=== PATIENT | female | born 1985 | race Two or more races ===

== ENCOUNTER 2017-03-06 04:23 | Emergency (ER) | payer BC, MEDICAID ==
[~2017-03-06] VITALS: Ht 167.6 cm; Wt 77.1 kg
[~2017-03-06 04:23] MED LIST: LORA2TAB95 PO; VALIUM
[2017-03-06] MEDS ORDERED: LORAZEPAM 0.5 MG TABLET PO ONE (05:00)
[2017-03-06] MEDS ORDERED: LORAZEPAM 1 MG TABLET ONE (05:06)
--- NOTE | 2017-03-06 05:06 | NUR ---
Patient discharged to home in stable conditon WITH FRIEND TAKING PATIENT HOME. Written and verbal after care instructions given. Patient verbalizes understanding of instructions.
[2017-03-06 05:07] VITALS: BP 126/65
== END 2017-03-06 05:07 | disposition home or self-care (01) ==
LOC: ER 04:24
DX: F41.9 Anxiety disorder, unspecified (principal); F10.20 Alcohol dependence, uncomplicated; F12.10 Cannabis abuse, uncomplicated
CPT/HCPCS: A4663

== ENCOUNTER 2017-04-21 19:05 | Emergency (ER) | payer SELFPAY ==
[~2017-04-21] VITALS: Ht 167.6 cm; Wt 78.9 kg
[2017-04-21] MEDS ORDERED: ONDANSETRON IV *ER 4 MG/2 ML VIAL IV ONE (20:00)
[2017-04-21] MEDS ORDERED: IV NORMAL SALINE 1000 ML BAG IV ONE (20:00)
[2017-04-21] MEDS ORDERED: ONDANSETRON 4 MG/2 ML VIAL ONE (20:12)
--- NOTE | 2017-04-21 20:20 | NUR ---
Patient refsuing to have any blood work done,EKG ot any other test to be proformed. Patient states "I don't have insurance. I am going home now."Dr Dietrich aware
--- NOTE | 2017-04-21 20:29 | NUR ---
Patient does not wish to proceed with medical care recommended by ( [facility] ). Patient given information related to possible complications, up to and including , which could occur as a result of leaving the hospital at this time. Patient verbalizes understanding of risks involved due to leaving against medical advice. Patient has signed AMA form.
== END 2017-04-21 20:30 | disposition left against medical advice (07) ==
LOC: ER 19:06
DX: R42 Dizziness and giddiness (principal); F17.200 Nicotine dependence, unspecified, uncomplicated; F41.9 Anxiety disorder, unspecified
CPT/HCPCS: 93005; A4663; J2405; J7030

== ENCOUNTER 2017-08-02 17:38 | Emergency (ER) | payer BC, MEDICAID ==
[~2017-08-02] VITALS: Ht 170.2 cm; Wt 77.1 kg
[2017-08-02 18:09] LABS: *BILIRUBIN,URIN NEGATIVE (NEGATIVE); *BLOOD, URINE NEGATIVE (NEGATIVE); *CLARITY,URINE CLEAR (CLEAR); *COLOR,URINE LIGHT YELLOW (YELLOW); *KETONES,URINE NEGATIVE (NEGATIVE); *PROTEIN,URINE NEGATIVE (NEGATIVE); *URINE HCG, QUAL NEGATIVE (NEGATIVE); *UROBILINOGEN,URINE 0.2 E.U./dl (NORMAL); LEUKOCYTE ESTERASE ,URINE TRACE (NEGATIVE); NITRITE, URINE NEGATIVE (NEGATIVE); UGLUCOSE NEGATIVE (NEGATIVE)
[2017-08-02 18:17] LABS: SQUAMOUS EPITHELIAL CELL,UR FEW /HPF (NONE SEEN)
--- NOTE | 2017-08-02 18:17 | NUR ---
Pt c/o upper back pain, started last night, 02/18. Pt states that yesterday she was doing physical activity, like moving things around. Pt denies CP, SOB, dizziness, n/v, no other complaints, no distress noted, but pt is moderately anxious.
[2017-08-02] MEDS ORDERED: KETOROLAC TROMETHAMINE 60 MG INJ IM ONE ×2 (19:45→19:57)
--- NOTE | 2017-08-02 19:50 | NUR ---
Gave pt RX and d/c instructions, verbalized understanding.
== END 2017-08-02 19:53 | disposition home or self-care (01) ==
LOC: ER 17:39
DX: M54.6 Pain in thoracic spine (principal); F41.9 Anxiety disorder, unspecified; F17.200 Nicotine dependence, unspecified, uncomplicated
CPT/HCPCS: 71010; 81001; 84703; 93005; 96372; 99285; 99406; A4663; J1885

== ENCOUNTER 2017-08-05 13:36 | Emergency (ER) | payer BC, MEDICAID ==
[~2017-08-05] VITALS: Ht 170.2 cm; Wt 77.1 kg
[2017-08-05] MEDS ORDERED: CEPH-570 PO (13:57)
[2017-08-05] MEDS ORDERED: LORA1TAB PO (13:57)
[2017-08-05] MEDS ORDERED: CLONIDINE HCL 0.2 MG TABLET PO ONE (14:30)
[2017-08-05] MEDS ORDERED: CLONIDINE HCL 0.2 MG TABLET ONE (14:57)
--- NOTE | 2017-08-05 15:31 | NUR ---
PT WAS EVALUATED BY DR TORRE. PT WAS D/C TO HOME . D/C INSTRUCTIONS GIVEN TO THE PT.
[2017-08-05 15:34] VITALS: BP 136/86
== END 2017-08-05 15:35 | disposition home or self-care (01) ==
LOC: ER 13:38
DX: R51 Headache (principal); R11.0 Nausea; F17.200 Nicotine dependence, unspecified, uncomplicated; F12.10 Cannabis abuse, uncomplicated
CPT/HCPCS: 99283; A4663

== ENCOUNTER 2017-08-05 21:54 | Emergency (ER) | payer BC, MEDICAID ==
[~2017-08-05] VITALS: Ht 170.2 cm; Wt 77.1 kg
[~2017-08-05 21:54] MED LIST changes: +CEPH-570 PO; +LORA1TAB PO; -LORA2TAB95 PO; -VALIUM
[2017-08-05 23:36] LABS: BASOPHILS # (AUTO) 0.1 K/uL (0.0-8.0); BASOPHILS % (AUTO) 0.8 % (0.0-2.0); EOSINOPHILS # (AUTO) 0.2 K/uL (0.0-0.7); EOSINOPHILS % (AUTO) 2.9 % (0.0-7.0); HEMATOCRIT 40.8 % (31.2-41.9); HEMOGLOBIN 13.7 g/dL (10.9-14.3); LYMPHOCYTES % (AUTO) 23.4 % (20.5-51.5); MEAN CORPUSCULAR HGB CONC 34 g/dL (32.3-35.6); MEAN CORPUSCULAR VOLUME 89.4 fL (75.5-95.3); MONOCYTES # (AUTO) 0.4 K/uL (2.0-10.0); MONOCYTES % (AUTO) 4.9 % (0.0-11.0); NEUTROPHILS # (AUTO) 5.9 K/uL (1.8-8.9); PLATELET COUNT (AUTO) 325 K/uL (179-408); RED BLOOD CELL COUNT(AUTO) 4.56 MIL/uL (3.63-4.92); WHITE BLOOD COUNT (AUTO) 8.6 K/uL (3.8-11.8)
[2017-08-05 23:52] LABS: CREATININE 0.8 mg/dL (0.6-1.3); POTASSIUM 4.2 mmol/L (3.5-5.1)
[2017-08-05 23:57] LABS: BILIRUBIN,DIRECT 0.1 mg/dL (0.0-0.2); BILIRUBIN,TOTAL 0.5 mg/dL (0.2-1.0); TOTAL PROTEIN, SERUM 8.2 g/dL (6.4-8.2)
--- NOTE | 2017-08-06 00:18 | NUR ---
Patient discharged to home in stable conditon. Written and verbal after care instructions given. Patient verbalizes understanding of instructions.
== END 2017-08-06 00:22 | disposition home or self-care (01) ==
LOC: ER 21:58
DX: F41.9 Anxiety disorder, unspecified (principal); R51 Headache; F12.10 Cannabis abuse, uncomplicated
CPT/HCPCS: 36415; 70450; 84703; 85025; A4663

== ENCOUNTER 2017-10-18 23:03 | Emergency (ER) | payer BC, MEDICAID ==
[~2017-10-18] VITALS: Ht 167.6 cm; Wt 79.4 kg
[2017-10-19] MEDS ORDERED: ONDANSETRON ODT 4 MG TAB.RAPDIS SL ONE (01:00)
[2017-10-19 01:14] LABS: BASOPHILS # (AUTO) 0.1 K/uL (0.0-8.0); BASOPHILS % (AUTO) 0.6 % (0.0-2.0); EOSINOPHILS # (AUTO) 0.2 K/uL (0.0-0.7); EOSINOPHILS % (AUTO) 2.1 % (0.0-7.0); HEMATOCRIT 42.2 % (31.2-41.9); HEMOGLOBIN 14.1 g/dL (10.9-14.3); LYMPHOCYTES % (AUTO) 22.8 % (20.5-51.5); MEAN CORPUSCULAR HEMOGLOBIN 29.5 uug (24.7-32.8); MEAN CORPUSCULAR HGB CONC 34 g/dL (32.3-35.6); MONOCYTES # (AUTO) 0.4 K/uL (2.0-10.0); MONOCYTES % (AUTO) 4.4 % (0.0-11.0); NEUTROPHILS # (AUTO) 6.2 K/uL (1.8-8.9); NEUTROPHILS % (AUTO) 70.1 % (38.5-71.5); PLATELET COUNT (AUTO) 362 K/uL (179-408); WHITE BLOOD COUNT (AUTO) 8.9 K/uL (3.8-11.8)
[2017-10-19] MEDS ORDERED: ONDANSETRON ODT 4 MG TAB.RAPDIS ONE (01:19)
[2017-10-19 01:28] LABS: POTASSIUM 3.6 mmol/L (3.5-5.1)
[2017-10-19 01:34] LABS: BILIRUBIN,DIRECT 0.1 mg/dL (0.0-0.2); BILIRUBIN,TOTAL 0.2 mg/dL (0.2-1.0); TOTAL PROTEIN, SERUM 8.4 g/dL (6.4-8.2)
--- NOTE | 2017-10-19 01:50 | NUR ---
Patient discharged to home in stable conditon. Written and verbal after care instructions given. Patient verbalizes understanding of instructions.
== END 2017-10-19 01:54 | disposition home or self-care (01) ==
LOC: ER 23:04
DX: R11.2 Nausea with vomiting, unspecified (principal); R53.1 Weakness; F17.200 Nicotine dependence, unspecified, uncomplicated
CPT/HCPCS: 36415; 83690; 84703; 85025; A4663; Q0162

== ENCOUNTER 2017-10-23 19:25 | Emergency (ER) | payer MEDICAID ==
[~2017-10-23] VITALS: Ht 167.6 cm; Wt 77.1 kg
[2017-10-23 20:09] LABS: *BILIRUBIN,URIN NEGATIVE (NEGATIVE); *BLOOD, URINE Trace-intact (NEGATIVE); *CLARITY,URINE CLEAR (CLEAR); *COLOR,URINE YELLOW (YELLOW); *KETONES,URINE NEGATIVE (NEGATIVE); *PROTEIN,URINE NEGATIVE (NEGATIVE); *UROBILINOGEN,URINE 0.2 E.U./dl (NORMAL); LEUKOCYTE ESTERASE ,URINE TRACE (NEGATIVE); NITRITE, URINE NEGATIVE (NEGATIVE); PH,URINE 6.5 (5.0-8.0); UGLUCOSE NEGATIVE (NEGATIVE)
[2017-10-23 20:10] LABS: BACTERIA,URINE NONE SEEN /HPF (NONE SEEN); RBC,URINE 0-3 /HPF (0-3); SQUAMOUS EPITHELIAL CELL,UR MODERATE /HPF (NONE SEEN)
[2017-10-23 20:20] LABS: *URINE HCG, QUAL NEGATIVE (NEGATIVE)
--- NOTE | 2017-10-23 20:52 | NUR ---
Patient discharged to home in stable conditon. Written and verbal after care instructions given. Patient verbalizes understanding of instructions.
== END 2017-10-23 20:53 | disposition home or self-care (01) ==
LOC: ER 19:26
DX: R19.8 Other specified symptoms and signs involving the digestive system and abdomen (principal); T37.5X5A Adverse effect of antiviral drugs, initial encounter; F17.200 Nicotine dependence, unspecified, uncomplicated; K21.9 Gastro-esophageal reflux disease without esophagitis; Y92.89 Other specified places as the place of occurrence of the external cause
CPT/HCPCS: 84703; A4663

== ENCOUNTER 2017-10-29 17:09 | Emergency (ER) | payer MEDICAID ==
[~2017-10-29] VITALS: Ht 152.4 cm; Wt 79.4 kg
--- NOTE | 2017-10-29 17:55 | NUR ---
Dr Shine at the bedside for MSE.
--- NOTE | 2017-10-29 19:48 | NUR ---
Patient discharged to home in stable conditon. Written and verbal after care instructions given. Patient verbalizes understanding of instructions.
[2017-10-29 19:53] VITALS: BP 135/88
== END 2017-10-29 19:54 | disposition home or self-care (01) ==
LOC: ER 17:09
DX: M20.012 Mallet finger of left finger(s) (principal); K21.9 Gastro-esophageal reflux disease without esophagitis; F17.200 Nicotine dependence, unspecified, uncomplicated
CPT/HCPCS: 73140; A4663

== ENCOUNTER 2017-11-18 14:41 | Emergency (ER) | payer MEDICAID ==
[~2017-11-18] VITALS: Ht 152.4 cm; Wt 79.4 kg
[2017-11-18] MEDS ORDERED: LORAZEPAM 0.5 MG TABLET PO ONE (15:45)
[2017-11-18] MEDS ORDERED: LORAZEPAM 1 MG TABLET ONE (15:54)
--- NOTE | 2017-11-18 16:05 | NUR ---
pt was evaluated by dr mahajan. pt was d/c to home. d/c instructions given to the pt.
[2017-11-18 16:06] VITALS: BP 146/76
== END 2017-11-18 16:07 | disposition home or self-care (01) ==
LOC: ER 14:49
DX: F41.9 Anxiety disorder, unspecified (principal); F15.10 Other stimulant abuse, uncomplicated; F12.10 Cannabis abuse, uncomplicated; F17.210 Nicotine dependence, cigarettes, uncomplicated; K21.9 Gastro-esophageal reflux disease without esophagitis; Z79.2 Long term (current) use of antibiotics; Z79.899 Other long term (current) drug therapy
CPT/HCPCS: A4663

== ENCOUNTER 2018-01-15 01:19 | Emergency (ER) | payer MEDICAID ==
[~2018-01-15] VITALS: Ht 152.4 cm; Wt 79.4 kg
--- NOTE | 2018-01-15 01:44 | NUR ---
DR NAPOLEON LACY MD AT BEDSIDE FOR MSE
--- NOTE | 2018-01-15 01:48 | NUR ---
PT STATES SHE TOOK BP AT HOME, AND IT WAS ELEVATED. PER PT, SHE TOOK 2 OF HER MOTHERS METOPROLOL PILLS FOR BP, AND LATER TOOK 1 OF HER MOTHERS ATIVAN FOR ANXIETY. VSS AT THIS TIME. PT IS A&O. PT IS AMBULATORY W/ STEADY GAIT. DENIES PAIN. DENIES SI. BREATHING EVEN AND UNLABORED. NO ACUTE DISTRESS NOTED.
--- NOTE | 2018-01-15 02:00 | NUR ---
Patient discharged to home in stable conditon. Written and verbal after care instructions given. Patient verbalizes understanding of instructions, but left aggitated and verbally abusing staff yelling profanities over not recieving a prescription for benzodiazapines.
[2018-01-15 02:41] VITALS: BP 124/75
== END 2018-01-15 02:00 | disposition home or self-care (01) ==
LOC: ER 01:23
DX: F15.10 Other stimulant abuse, uncomplicated (principal); K21.9 Gastro-esophageal reflux disease without esophagitis; F17.210 Nicotine dependence, cigarettes, uncomplicated; F12.10 Cannabis abuse, uncomplicated; Z76.5 Malingerer [conscious simulation]; Z79.2 Long term (current) use of antibiotics; Z79.899 Other long term (current) drug therapy
CPT/HCPCS: A4663

== ENCOUNTER 2018-02-01 00:30 | Emergency (ER) | payer MEDICAID ==
[~2018-02-01] VITALS: Ht 167.6 cm; Wt 79.4 kg
[~2018-02-01 00:30] MED LIST changes: -CEPH-570 PO
--- NOTE | 2018-02-01 01:39 | NUR ---
PT C/O HTN. PER PT, SHE TOOK A BETA AURE AT HOME, AND NOW PRESENTS W/ BP OF 125/75. NO ACUTE DISTRESS NOTED AT THIS TIME.
--- NOTE | 2018-02-01 02:03 | NUR ---
Patient discharged to home in stable conditon. Written and verbal after care instructions given. Patient verbalizes understanding of instructions. PT ambulated w/ steady gait. Denies SOB, diizziness, N/V, pain. Pt took all personal belongings. No distress noted.
[2018-02-01 02:15] VITALS: BP 113/78
== END 2018-02-01 02:17 | disposition home or self-care (01) ==
LOC: ER 00:34
DX: I10 Essential (primary) hypertension (principal); F15.10 Other stimulant abuse, uncomplicated; F41.9 Anxiety disorder, unspecified; K21.9 Gastro-esophageal reflux disease without esophagitis; F17.200 Nicotine dependence, unspecified, uncomplicated
CPT/HCPCS: A4663

== ENCOUNTER 2024-02-13 03:21 | Emergency (ER) | payer BC, MEDICAID ==
[~2024-02-13] VITALS: Ht 167.6 cm; Wt 86.2 kg
[2024-02-13 04:27] LABS: BASOPHILS # (AUTO) 0.1 K/UL (0.0-0.2); BASOPHILS % (AUTO) 0.6 % (0.0-2.0); EOSINOPHILS # (AUTO) 0.2 K/uL (0.0-0.7); EOSINOPHILS % (AUTO) 2.1 % (0.0-7.0); HEMOGLOBIN 12.7 g/dL (10.9-14.3); LYMPHOCYTES % (AUTO) 27.5 % (20.5-51.5); MEAN CORPUSCULAR HEMOGLOBIN 30.1 uug (24.7-32.8); MEAN CORPUSCULAR HGB CONC 34 g/dL (32.3-35.6); MEAN CORPUSCULAR VOLUME 89.8 fL (75.5-95.3); MONOCYTES # (AUTO) 0.6 K/uL (0.1-1.30); NEUTROPHILS # (AUTO) 6.9 K/uL (1.8-8.9); NEUTROPHILS % (AUTO) 63.8 % (38.5-71.5); PLATELET COUNT (AUTO) 297 K/uL (179-408); RED BLOOD CELL COUNT(AUTO) 4.23 MIL/uL (3.63-4.92); RED CELL DISTRIBUTION WIDTH 13.3 % (12.3-17.7); WHITE BLOOD COUNT (AUTO) 10.9 K/uL (3.8-11.8)
[2024-02-13 04:35] LABS: DIFFERENTIAL COMMENT 1
[2024-02-13 04:44] LABS: *URINE HCG, QUAL NEGATIVE (NEGATIVE)
[2024-02-13 05:03] LABS: CALCIUM 8.7 mg/dL (8.5-10.1); CARBON DIOXIDE 27 mmol/L (21-32); CHLORIDE 101 mmol/L (98-107); GLUCOSE 96 mg/dL (74-106); POTASSIUM 3.4 mmol/L (3.5-5.1); SODIUM SERUM 138 mmol/L (136-145); UREA NITROGEN, BLOOD 18 mg/dL (7-18)
[2024-02-13 05:04] LABS: *AMPHETAMINE, URINE POSITIVE (NEGATIVE); *BARBITURATE, URINE NEGATIVE (NEGATIVE); *BENZODIAZEPINE, URINE NEGATIVE (NEGATIVE); *CANNABINOID, URINE NEGATIVE (NEGATIVE); *COCCAINE, URINE NEGATIVE (NEGATIVE); *OPIATE, URINE NEGATIVE (NEGATIVE); *PHENCYCLIDINE SCREEN,URINE NEGATIVE (NEGATIVE); FENTANYL, URINE NEGATIVE (NEGATIVE)
[2024-02-13 05:17] LABS: ALANINE AMINOTRANSFERASE 30 U/L (14-59); ALBUMIN 3.5 g/dL (3.4-5.0); ALKALINE PHOSPHATASE 56 U/L (50-136); ASPARTATE AMINOTRANSFERASE 7 U/L (15-37); BILIRUBIN,DIRECT 0.1 mg/dL (0.0-0.2); BILIRUBIN,TOTAL 0.2 mg/dL (0.2-1.0); TOTAL PROTEIN, SERUM 7.8 g/dL (6.4-8.2)
[2024-02-13 05:20] LABS: NT-PRO BNP 9 pg/mL (0-125)
[2024-02-13] MEDS: IV NORMAL SALINE 1000 ML BAG IV ONE (05:33)
[2024-02-13] MEDS ORDERED: IOHEXOL 350 100 ML INFUS..BTL ONE (06:05)
[2024-02-13] MEDS ORDERED: SWABABLE VALVE TRANSFER SET EA MC ONE (06:05)
[2024-02-13] MEDS ORDERED: IV NORMAL SALINE 250 ML IV ONE (06:05)
[2024-02-13 08:42] VITALS: BP 133/80; TEMP 98; O2SAT 99
== END 2024-02-13 08:42 | disposition home or self-care (01) ==
LOC: ER 03:22
DX: R07.89 Other chest pain (principal); K21.9 Gastro-esophageal reflux disease without esophagitis; Z79.899 Other long term (current) drug therapy
CPT/HCPCS: 99285; 96360; 71275; 71045; 96361; 80076; 80048; 84703; 83880; 85025; 85379; 85730; 84484; 36415; 93005; 80307; Q9967; J7040; A4606; A4663